=== PATIENT | male | born 1975 | race Caucasian/White ===

== ENCOUNTER 2024-05-23 05:25 | Emergency (ER) | payer OTHER ==
[~2024-05-23] VITALS: Ht 177.8 cm; Wt 117.9 kg
[~2024-05-23 05:25] MED LIST: AMOXICILLIN500 MG PO; ANTIVERT/2525 MG PO; METOPROLOL SR25 MG PO; PREDNICOT20 MG PO
[2024-05-23 05:30] VITALS: BP 144/90
[2024-05-23] MEDS ORDERED: Acetaminophen/Hydrocodone 5 MG/325 MG TABLET PO ONE (05:30)
[2024-05-23] MEDS ORDERED: PENICILLIN V POTASSIUM 500 MG TAB PO ONE (05:30)
[2024-05-23] MEDS ORDERED: Ondansetron Hydrochloride 4 MG TAB SL ONE (05:30)
[2024-05-23] MEDS ORDERED: PENICILLIN VK500 MG PO (05:34)
== END 2024-05-23 05:47 | disposition home or self-care (01) ==
LOC: ED 05:25
DX: K02.9 Dental caries, unspecified (principal); R22.0 Localized swelling, mass and lump, head; I10 Essential (primary) hypertension